=== PATIENT | female | born 1935 | race Caucasian/White ===

== ENCOUNTER 2024-02-27 16:43 | Inpatient (IN) | payer MEDICARE, MEDICAID ==
[~2024-02-27] VITALS: Ht 162.6 cm; Wt 60.8 kg
[2024-02-27] MEDS: SODIUM CHLORIDE 0.9% 500 ML IV ONE (17:11)
[2024-02-27 17:54] LABS: BASOPHILS % 0.8 % (0.0-2.0); EOSINOPHILS % 1.4 % (0.0-5.0); HEMATOCRIT. 42.4 % (36.0-48.0); HEMOGLOBIN. 14.3 g/dL (12.0-16.0); LYMPHOCYTES % 28.8 % (20.0-50.0); MEAN CORPUSCULAR HEMOGLOBIN 33.5 pg (28.0-32.0); MEAN CORPUSCULAR HGB CONC 33.7 g/dL (31.0-37.0); MEAN CORPUSCULAR VOLUME 99.4 fL (81.0-99.0); MEAN PLATELET VOLUME 7.6 fl (7.4-10.4); MONOCYTES % 9.5 % (2.0-8.0); NEUTROPHILS % 59.5 % (40.0-76.0); PLATELET 124 x1000/uL (130-400); RED BLOOD CELL COUNT 4.26 mill/uL (4.2-5.4); RED CELL DISTRIBUTION WIDTH 12.8 % (11.6-14.6); WHITE BLOOD COUNT 4.1 x1000/uL (4.5-11.0)
[2024-02-27 18:02] LABS: CHLORIDE 105 mEq/L (98-107); POTASSIUM 4.5 mEq/L (3.5-5.1); SODIUM 138 mEq/L (136-145)
[2024-02-27 18:03] LABS: CALCIUM 9.1 mg/dL (8.7-10.4); CARBON DIOXIDE 29 mEq/L (21-32)
[2024-02-27 18:08] LABS: CREATININE 0.7 mg/dL (0.6-1.0); GLUCOSE 89 mg/dL (70-105); UREA NITROGEN BLOOD 17 mg/dL (9-23)
[2024-02-27 18:10] LABS: ACETAMINOPHEN < 2 ug/mL (10-30); ALANINE AMINOTRANSFERASE 7 IU/L (10-49); ALBUMIN 3.9 g/dL (3.2-4.8); ASPARTATE AMINOTRANSFERASE 17 IU/L (<34); BILIRUBIN DIRECT 0.2 mg/dL (<=3.0); BILIRUBIN TOTAL 0.5 mg/dL (0.1-1.0); PROTEIN TOTAL 6.3 g/dL (6.0-8.3)
[2024-02-27 18:20] LABS: ETHANOL BLOOD < 10 mg/dL (<10)
[2024-02-27 18:56] LABS: CLARITY URINE CLEAR (CLEAR); COLOR URINE YELLOW (YELLOW); GLUCOSE URINE NEGATIVE (NEGATIVE); KETONES URINE NEGATIVE (NEGATIVE); LEUKOCYTE ESTERASE URINE TRACE (NEGATIVE); NITRITE URINE NEGATIVE (NEGATIVE); OCCULT BLOOD URINE NEGATIVE (NEGATIVE); PROTEIN URINE NEGATIVE (NEGATIVE); SPECIFIC GRAVITY URINE 1.009 (1.005-1.030); UROBILINOGEN URINE 0.2 E.U./dL (0.2-1.0)
[2024-02-27 19:10] LABS: *AMPHETAMINES SCREEN URINE NEGATIVE (NEGATIVE); *BARBITURATES SCREEN URINE NEGATIVE (NEGATIVE); *BENZODIAZEPINES SCREEN URINE NEGATIVE (NEGATIVE); *COCAINE SCREEN URINE NEGATIVE (NEGATIVE)
[2024-02-27 19:11] LABS: CANNABINOID URINE SCREEN NEGATIVE (NEGATIVE); ECSTASY MDMA SCREEN URINE NEGATIVE (NEGATIVE); METHADONE URINE SCREEN NEGATIVE (NEGATIVE); OPIATES URINE SCREEN NEGATIVE (NEGATIVE); PHENCYCLIDINE URINE SCREEN NEGATIVE (NEGATIVE)
[2024-02-27 19:16] LABS: BACTERIA URINE NONE SEEN; RBC URINE 0-2 /hpf (0-2); SQUAMOUS EPITHELIAL CELL URINE RARE /lpf (RARE/1+); WBC URINE 0-2 /hpf (0-2)
[2024-02-27 20:40] LABS: TROPONIN I HIGH SENSITIVITY 154 ng/L (3.0-34)
[2024-02-28] MEDS ORDERED: ACETAMINOPHEN 325MG TABLET PO PRN (01:45)
[2024-02-28] MEDS ORDERED: HYDRALAZINE 20MG/ML VIAL IV PRN (01:45)
[2024-02-28] MEDS: QUETIAPINE FUMARATE 25MG TABLET PO SCH (02:01)
[2024-02-28 03:08] VITALS: BP 159/58; PULSE 52; RESP 19; TEMP 36.3068
[2024-02-28] MEDS ORDERED: DIVA-73 PO (03:31)
[2024-02-28] MEDS ORDERED: QUET50TA PO (03:31)
[2024-02-28] MEDS ORDERED: MEMA5TAB16 MT (03:31)
[2024-02-28] MEDS ORDERED: LISI20TA31 PO (03:31)
[2024-02-28] MEDS: PANTOPRAZOLE 40MG DR TABLET PO SCH (06:45)
[2024-02-28 07:32] LABS: BASOPHILS % 0.5 % (0.0-2.0); DIFFERENTIAL COMMENT 0; EOSINOPHILS % 2.1 % (0.0-5.0); HEMATOCRIT. 45.4 % (36.0-48.0); LYMPHOCYTES % 28.5 % (20.0-50.0); MEAN CORPUSCULAR HEMOGLOBIN 33.5 pg (28.0-32.0); MEAN CORPUSCULAR HGB CONC 33.1 g/dL (31.0-37.0); MEAN CORPUSCULAR VOLUME 101.3 fL (81.0-99.0); MONOCYTES % 10.2 % (2.0-8.0); NEUTROPHILS % 58.7 % (40.0-76.0); PLATELET 138 x1000/uL (130-400); RED BLOOD CELL COUNT 4.48 mill/uL (4.2-5.4); RED CELL DISTRIBUTION WIDTH 12.9 % (11.6-14.6); WHITE BLOOD COUNT 5.9 x1000/uL (4.5-11.0)
[2024-02-28 07:50] LABS: CHLORIDE 103 mEq/L (98-107); POTASSIUM 4.5 mEq/L (3.5-5.1); SODIUM 137 mEq/L (136-145)
[2024-02-28 07:53] LABS: CARBON DIOXIDE 28 mEq/L (21-32)
[2024-02-28 07:54] LABS: CALCIUM 9.7 mg/dL (8.7-10.4)
[2024-02-28 07:58] LABS: CREATININE 0.7 mg/dL (0.6-1.0)
[2024-02-28 07:59] LABS: GLUCOSE 72 mg/dL (70-105); UREA NITROGEN BLOOD 19 mg/dL (9-23)
[2024-02-28 08:00] VITALS: BP 182/92; PULSE 58; RESP 18; TEMP 36.55848; O2SAT 98
[2024-02-28 08:00] LABS: ALANINE AMINOTRANSFERASE 8 IU/L (10-49); ALBUMIN 3.9 g/dL (3.2-4.8); ASPARTATE AMINOTRANSFERASE 20 IU/L (<34)
[2024-02-28 08:01] LABS: BILIRUBIN DIRECT 0.2 mg/dL (<=3.0); BILIRUBIN TOTAL 0.6 mg/dL (0.1-1.0); PROTEIN TOTAL 6.4 g/dL (6.0-8.3)
[2024-02-28] MEDS: ENOXAPARIN 40MG/0.4ML SYR SUBCUT SCH (08:21)
[2024-02-28 12:00] VITALS: BP 144/104; PULSE 60; RESP 19; TEMP 36.55848; O2SAT 98
[2024-02-28] MEDS: MEMANTINE HCL 5MG TABLET PO SCH (15:32)
[2024-02-28] MEDS: QUETIAPINE FUMARATE 50MG TABLET PO SCH (15:32)
[2024-02-28 16:00] VITALS: BP 132/90; PULSE 61; RESP 18; TEMP 36.83628; O2SAT 97
[2024-02-28 20:00] VITALS: BP 152/50; PULSE 65; RESP 18; TEMP 36.16956; O2SAT 96
[2024-02-28] MEDS: DIVALPROEX SODIUM 250MG DR TABLET PO SCH (20:47)
[2024-02-29] VITALS: BP 155/48; PULSE 49; RESP 19; TEMP 35.5584; O2SAT 98
[2024-02-29 04:00] VITALS: BP 157/33; PULSE 43; RESP 18; TEMP 35.50284
[2024-02-29 08:00] VITALS: BP_SYST 127; BP_SYST 147; BP_DIAS 50; BP_DIAS 73; PULSE 54; RESP 17; TEMP 36.28068; O2SAT 96; O2SAT 97
[2024-02-29] MEDS: DIVALPROEX SODIUM 125MG SPRINKLE CAPSULE PO SCH (09:38)
[2024-02-29 12:00] VITALS: BP 147/50; PULSE 54; RESP 17; TEMP 36.28068; O2SAT 97
[2024-02-29 16:00] VITALS: BP 159/76; PULSE 63; RESP 18; TEMP 36.16956; O2SAT 96
[2024-02-29 16:45] VITALS: BP 149/67; PULSE 63; TEMP 98.7; O2SAT 99
== END 2024-02-29 18:30 | disposition home or self-care (01) | DRG 917 ==
LOC: EDBD 16:43 → ER 16:43 → 7EST 19:30 → EDBEDREQTM 19:34 → EDBEDREQ 19:34
PROVIDERS: ADMIT Internal Medicine; ATTEND Internal Medicine
DX: T46.4X1A Poisoning by angiotensin-converting-enzyme inhibitors, accidental (unintentional), initial encounter (principal); I21.4 Non-ST elevation (NSTEMI) myocardial infarction; I10 Essential (primary) hypertension; Z79.899 Other long term (current) drug therapy; Y92.89 Other specified places as the place of occurrence of the external cause
CPT/HCPCS: 36415; 71045; 80048; 80076; 80305; 80307; 80320; 80329; 81003; 83880; 84484; 85025; 93005; 99291; J1650; J7040; G0480